=== PATIENT | female | born 1990 | race Two or more races ===

== ENCOUNTER 2020-10-22 15:15 | Inpatient (IN) | payer OTHER ==
[~2020-10-22] VITALS: Ht 157.5 cm; Wt 82.6 kg
[2020-11-17] MEDS ORDERED: PRENATAL TABLE1 EAC1 PO (00:41)
== END 2020-11-19 15:13 | disposition home or self-care (01) | DRG 807 ==
LOC: OB/GYN 11-17 00:25 → LDR 11-17 00:25 → OB/GYN 11-17 08:16 → SURH 11-18 14:15 → OB/GYN 11-19 15:13
PROVIDERS: ADMIT Specialist; ATTEND Specialist
PROC: 10E0XZZ Delivery of Products of Conception, External Approach (ICD-10-PCS; principal; 2020-11-17)
PROC: 4A1HXFZ Monitoring of Products of Conception, Cardiac Rhythm, External Approach (ICD-10-PCS; 2020-11-17)
DX: O80 Encounter for full-term uncomplicated delivery (principal); Z37.0 Single live birth; Z3A.39 39 weeks gestation of pregnancy